=== PATIENT | male | born 1940 | race Caucasian/White ===

== ENCOUNTER 2016-07-16 10:43 | Day surgery (SDC) | payer MEDICARE ==
[2016-07-11 13:03] LABS: HEMATOCRIT 43.7 % (40.0-51.0); HEMOGLOBIN 15.1 g/dL (13.6-17.8)
[2016-07-11 13:15] LABS: BUN (BLOOD UREA NITROGEN) 16 MG/DL (6-23); CHLORIDE, SERUM 105 MMOL/L (96-112); CO2 (CARBON DIOXIDE) 27 MMOL/L (24-34); CREATININE 0.99 MG/DL (0.70-1.30); GFR AFRICAN AMERICAN 85 ML/MIN (>=60); GFR NON AFRICAN AMERICAN 74 ML/MIN (>=60); GLUCOSE, SERUM 103 MG/DL (60-99); POTASSIUM, SERUM 4.5 MMOL/L (3.5-5.3); SODIUM, SERUM 141 MMOL/L (135-148)
[2016-07-11 13:16] LABS: CALCIUM, SERUM 8.9 MG/DL (8.5-10.4)
--- NOTE | ~2016-07-16 | OP ---
Record Of Operation [facility] [address] [place]. 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 POSTOPERATIVE DIAGNOSES: 1. Left popliteal stent in good position. No significant endoleak or abnormality noted on previously placed stent. 2. Probable migration of the aortoiliac graft with moderate kinking of both iliac limbs. No evidence of endo leak. 3. 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 SURGERY PERFORMED: 1. Aortogram. 2. Left lower extremity runoff. 3. Antegrade access to the left femoral artery. DESCRIPTION OF PROCEDURE: The patient was placed under IV sedation. Both groins were prepped and draped in sterile fashion. Right femoral artery cannulated with ultrasound direction. A needle, wire, and sheath were placed. Attempting to access the right common iliac artery show that the previously placed aneurysm endograft appears to have migrated distally. There was kinking of both right and left limbs of the iliac component. A 5 sheath was placed on the right side. A eliazar catheter was used to actually access this limb and placing a UF in the abdominal aorta. Aortogram done showing that the stent obviously is migrated distally. Both renal arteries were patent. The graft was patent. There was no evidence of an endoleak and the neck look relatively normal. Both iliac limbs showed some kinking up proximally, but there was flow through both iliacs, did not appear to be impeded. The pelvic area was then injected separately showing that the iliacs were dilated distally. However, on the right side, there was good flow into the external, there was no internal flow. On the left side, again there was some kinking of the graft but there was decent flow through the vessel, some dilatation of the distal graft where the end of the iliac component was, and then the external coming off the larger graft appeared to be a stenosis in the region, possibly 50%-60%, but the preoperative duplex showing triphasic signals in his femoral vessels. Because of the endografting present, an antegrade stick was then done on the left side. With the ultrasound again, the common femoral was accessed right at the inguinal ligament and then a wire placed into the SFA followed by micropuncture sheath and then a 0.035 wire and a 4 sheath. Angiogram done on the left lower extremity showing the common femoral profunda was open, SFA showed disease proximally, irregular stenotic areas. There were no significant stenotic segments. Distally, the SFA was open. The Viabahn stent that was used to replace the popliteal was seen, it was perfectly open. Distally where there was some question about the attachment to the popliteal artery, showed no flow restriction. The runoff was through a very diseased tibial vessel, the tibioperoneal trunk showing some disease, anterior tibial coming off and flowing into the foot. The direct runoff was through the peroneal and anterior tibial does feel turbo operator than peroneal and the posterior tibial appears to be totally occluded. Additional film was done in the popliteal Record Of [address] [address] NAME: GARCIA FREEMAN : 38 [place] [facility] [place]#: [id number] AGE: 75 ADM/REG DATE : 07/16/16 MR#: [id number] REPORT SERV DATE: 07/16/16 DICTATED BY: JOSE YIP DATE: 07/16/16 REPORT STATUS : Draft TRANSCRIBED BY: MODL DATE: 07/16/16 area because of the concern of the distal stent with an oblique view, again this showing good flow through the popliteal, no restrictions, no stenosis, and no endo leak of significance was noted. This coupled with the fact that both femoral arteries appeared to be diseased, it was decided to stop at this point in time, so both sheaths were removed from both groins and pressure was held, and a pressure dressing was applied and determined that the patient would be followed as an outpatient without intervention at this point in time. Estimated blood loss 20 mL. The patient stable during the operation, went to recovery room in good condition. /URSZULA Jose Yip M.D. / [id number] CC: Roro Adams DONALD
--- NOTE | ~2016-07-16 | CN ---
Consultation Report [place] [id number] [facility] [place]. [address] NAME: GARCIA FREEMAN : 38 [place] : [place] [facility] [place] PAT#: [id number] AGE: 75 ADM/REG DATE : 07/16/16 MR#: [id number] REPORT SERV DATE: 07/17/16 DICTATED BY: JOSE RUSSELL DATE: 07/17/16 REPORT STATUS : Draft TRANSCRIBED BY: MODL DATE: 07/17/16 CONSULTATION DATE OF CONSULTATION: 07/16/2016 INDICATION: Atrial fibrillation. HISTORY OF PRESENT ILLNESS: Mr. Freeman is a 75-year-old man, with an extensive heart history, although, no arrhythmia history, who is here for peripheral vascular disease stenting. Postoperatively, he has had atrial fibrillation which is apparently a new diagnosis. He does not know he is out of rhythm. He has no complaints. PAST MEDICAL HISTORY: 1. Coronary artery disease with history of myocardial infarction and PCI. 2. Peripheral vascular disease. 3. Chronic pain. 4. Decreased thyroid. 5. Anxiety. SOCIAL HISTORY: He is a former smoker. No family is in the room today. FAMILY HISTORY: There is coronary artery disease in his family. HOME MEDICATIONS: Please see the list in the chart as it is extensive. Relevant cardiac medications are aspirin 81 mg daily, Coreg 6.25 mg b.i.d., and Plavix 75 mg daily. ALLERGIES: NO KNOWN DRUG ALLERGIES. REVIEW OF SYSTEMS: A 10-system review was asked and is negative except were noted above in the history of present illness and for the following. He has chronic fatigue, although, he does remain pretty active. He has some leg pain. No chest pain or palpitations. No presyncope or syncope. No recent cold or flu symptoms. PHYSICAL EXAMINATION: VITAL SIGNS: Temperature 97.9, heart rate is 120, blood pressure 110/72. GENERAL: Mr. Freeman is a well-developed man, in no acute distress. He is alert and oriented to person and place. HEENT: Negative. There is no obvious dehydration. NECK: There is no JVD in his neck. LUNGS: Clear. HEART: Tones are irregular. A little distant. ABDOMEN: The abdominal exam is negative. He has good bowel sounds. EXTREMITIES: Does not show significant edema. Consultation Report [place] [id number] [facility] [place]. [address] NAME: GARCIA FREEMAN : 38 STATUS : [facility] [place] PAT#: [id number] AGE: 75 ADM/REG DATE : 07/16/16 MR#: [id number] REPORT SERV DATE: 07/17/16 DICTATED BY: JOSE RUSSELL DATE: 07/17/16 REPORT STATUS : Draft TRANSCRIBED BY: URSZULA DATE: 07/17/16 NEUROLOGIC: He has normal speech and moves all four extremities equally. SKIN: Shows a little bruising. No rash. LABORATORY DATA: Reviewing lab in the chart that I see recently is an INR of 1.0. Electrocardiogram, this demonstrates atrial fibrillation. Telemetry, this also shows atrial fibrillation, with rapid ventricular response at the moment. IMPRESSION: Newly diagnosed atrial fibrillation. PLAN: I will start Mr. Freeman on some IV Cardizem to control his heart rate and IV heparin if it is okay with Dr. Escobar for anticoagulation. He has a high CHADS-VASc score and at this time, we will require outpatient therapeutic anticoagulation. However, he tells me that he has a history of "feather veins" in his stomach that have blood and then been cauterized. He states that they have blood again after the cauterization and nothing else has been done. He states that he passes a little bit of blood maybe once per week out of his rectum. Therefore, there is a good chance we will not give him anything stronger than his aspirin and Plavix. He understands the risk and benefit profile of this. Unless we have to shock him, I probably will not give him any further medications such as an AAD if he returns to sinus rhythm on his own, which is what I expect. We will order an echocardiogram. Hopefully home tomorrow if he is back in sinus rhythm. He agrees with this plan. [facility]/URSZULA Jose Russell M.D. / [id number] CC: Roro Adams DONALD Steven Stubblefield, M.D., F.A.C.C.
[~2016-07-16 10:43] MED LIST: ALTA2.5 PO; ASA 81MG PO; ASAB PO; COREG6 PO; IRON325 MG PO; LEVOTHYROXIN137 MCG PO; LOP25 PO; LORT7 PO; NITROQUICK0.4 MG SL; NORCO1 TA1 PO; PAX10 PO; PAX20 PO; PLAVIX PO; PRAVACHOL40 MG PO; PRAVACHOL80 MG PO; PRILOSEC40 MG PO; PROTONIX PO; SYN.15 PO; X5 PO; ZOCOR40 PO
[2016-07-16 18:21] LABS: PARTIAL THROMBO TIME 28.1 SEC (22.5-37.2); PROTIME (NOT ORD) 13.3 SEC (12.0-14.5)
[2016-07-17 06:47] LABS: BASOPHILS 0.4 %; BASOPHILS ABSOLUTE 0.05 10/3/uL (0.0-0.16); EOSINOPHILS ABSOLUTE 0.51 10/3/uL (0.0-0.53); HEMATOCRIT 40.2 % (40.0-51.0); HEMOGLOBIN 13.9 g/dL (13.6-17.8); IMMATURE GRANULOCYTES 0.5 %; IMMATURE GRANULOCYTES ABSOLUTE 0.06 10/3/uL (0.0-0.11); LYMPHOCYTES 17.1 %; LYMPHOCYTES ABSOLUTE 2.15 10/3/uL (0.67-4.30); MEAN CORPUS HGB CONC 34.6 g/dL (32.0-36.0); MEAN CORPUSCULAR HEMOGLOB 33.5 pg (26.0-34.0); MEAN CORPUSCULAR VOLUME 96.9 fL (80-100); MEAN PLATELET VOLUME 9.3 fL (9.2-13.0); MONOCYTES 14.8 %; MONOCYTES ABSOLUTE 1.87 10/3/uL (0.21-1.20); NEUTROPHILS 63.2 %; NEUTROPHILS ABSOLUTE 7.96 10/3/uL (2.02-8.40); WHITE BLOOD CELLS 12.6 10/3/uL (4.5-10.5)
[2016-07-17 06:48] LABS: MANUAL DIFF NO %; PLATELET COUNT 498 10/3/uL (150-400); RBC DISTRIBUTION WIDTH 13.3 % (12.0-16.0); RED CELL COUNT 4.15 10/6/uL (4.7-6.1)
[2016-07-17 06:55] LABS: INTERNATIONAL NORMAL RATI 1.1 UNITS (-); PROTIME (NOT ORD) 14.1 SEC (12.0-14.5)
[2016-07-17 06:59] LABS: PARTIAL THROMBO TIME 141.9 SEC (22.5-37.2)
[2016-07-17 07:10] LABS: CALCIUM, SERUM 9.1 MG/DL (8.5-10.4); CHLORIDE, SERUM 106 MMOL/L (96-112); CO2 (CARBON DIOXIDE) 25 MMOL/L (24-34); CREATININE 0.77 MG/DL (0.70-1.30); FREE T4 1.28 NG/DL (0.76-1.46); GFR AFRICAN AMERICAN 102 ML/MIN (>=60); GFR NON AFRICAN AMERICAN 88 ML/MIN (>=60); GLUCOSE, SERUM 101 MG/DL (60-99); SODIUM, SERUM 141 MMOL/L (135-148)
[2016-07-17 07:11] LABS: BUN (BLOOD UREA NITROGEN) 12 MG/DL (6-23)
== END 2016-07-17 11:08 | disposition home or self-care (01) ==
LOC: SDC 10:43 → SSU1 14:49
PROVIDERS: Internal Medicine Cardiovascular Disease; Surgery Vascular Surgery
PROC: B41DZZZ Fluoroscopy of Aorta and Bilateral Lower Extremity Arteries (ICD-10-PCS; principal; 2016-07-16 12:15)
DX: I70.202 Unspecified atherosclerosis of native arteries of extremities, left leg (principal); I25.10 Atherosclerotic heart disease of native coronary artery without angina pectoris; I10 Essential (primary) hypertension; I71.4 Abdominal aortic aneurysm, without rupture; I25.2 Old myocardial infarction; E78.00 Pure hypercholesterolemia, unspecified; E03.9 Hypothyroidism, unspecified; K27.9 Peptic ulcer, site unspecified, unspecified as acute or chronic, without hemorrhage or perforation; K21.9 Gastro-esophageal reflux disease without esophagitis; J44.9 Chronic obstructive pulmonary disease, unspecified; F17.210 Nicotine dependence, cigarettes, uncomplicated; F41.9 Anxiety disorder, unspecified; M19.90 Unspecified osteoarthritis, unspecified site; Z90.49 Acquired absence of other specified parts of digestive tract; Z90.89 Acquired absence of other organs; Z90.81 Acquired absence of spleen; Z98.890 Other specified postprocedural states; Z79.82 Long term (current) use of aspirin; Z79.02 Long term (current) use of antithrombotics/antiplatelets; Z79.899 Other long term (current) drug therapy
CPT/HCPCS: 36140; 36200; 75625; 75710; 80048; 83735; 84439; 84443; 85014; 85018; 85025; 85610; 85730; 93005; 93306; A9270-GY; C1769; C1894; J0690; J3010; Q9967